=== PATIENT | male | born 1965 | race Caucasian/White ===

== ENCOUNTER 2023-12-06 12:33 | Outpatient (CLI) | payer OTHER, SELFPAY ==
[2023-12-06] MEDS: ALBUTEROL 0.083% 2.5 MG/3 ML NEB IH (12:57)
--- NOTE | 2023-12-06 12:58 | PC.NURSE ---
Pre and Post Spirometry completed without incident. Albuterol 0.083% given via HHN, per written protocol, PT tolerated tx well.
== END 2023-12-06 23:59 | disposition home or self-care (01) ==
LOC: RT 12:34
PROVIDERS: PCP Nurse Practitioner Family; Visit Provider Chiropractor
DX: J40 Bronchitis, not specified as acute or chronic (principal); R05.3 Chronic cough
CPT/HCPCS: 94060